=== PATIENT | male | born 1970 | race Caucasian/White ===

== ENCOUNTER → 2018-04-09 | Emergency (ER) | payer OTHER ==
[~2018-04-09] MED LIST: CEFTRIAXONE 1,000 MG in DEXTROSE 5%-WATER - 50 ML IVPB ONE; VANCOMYCIN 1 GRAM (PRE-DOCKED) 1,000 MG/250 ML BAG IVPB ONE; VANCOMYCIN 1,000 MG VIAL (RESTRICTED TO ID ONLY) ONE; cefTRIAXone SODIUM 1 GM VIAL ONE
--- NOTE | 2018-04-09 23:45 | PDOC ---
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 Pt states that he went to work out today after a long period of inactivity and he now has neck pain and headache. Incidentally he states that hsi throat is sore and that he is having difficulty breathing. He has no PMHx of medical problems. He is afebrile. He has no ill contacts. He appears well, no voice changes and no difficulty swallowing, or handling his secretions. Timing/Duration: 4-6 hours Severity: mild, moderate Modifying Factors: worse with: cold therapy, eating, immobilization, medication , movement, rest, other Associated Symptoms: reports: cough. denies: denies symptoms, chest pain, diaphoresis, fever/chills, headaches, loss of appetite, malaise, nausea/vomiting , rash, seizure, shortness of breath, syncope, weakness, other Aspirin Received prior to arrival: No: no aspirin today, unknown, 81 mg x 1, 81 mg x 2, 81 mg x 3, 81 mg x 4, 325 mg x 1, provided at home, provided by EMS, provided by [facility] Contraindications(Core Measure): No: Allergy, Other, Active Blding w/i 24 hrs., Plavix, Receiving Warfarin Past History - Travel Traveled outside of the country in the last 30 days: No Close contact w/someone who was outside of country & ill: No - Past Medical History Allergies/Adverse Reactions: Allergies Allergy/AdvReac Type Severity Reaction Status Date / Time guaifenesin [From Quibron] Allergy Verified 04/09/18 23:45 theophylline [From Quibron] Allergy Verified 04/09/18 23:45 Home Medications: Ambulatory Orders Nortriptyline HCl 04/09/18 COPD: No - Suicide/Smoking/Psychosocial Hx Smoking History: Never smoked Have you smoked in the past 12 months: No Review of Systems - Review of Systems Able to Perform ROS?: Yes Is the patient limited Chinese proficient: No Constitutional: No: Symptoms Reported, See HPI, Chills, Diaphoresis, Fever, Loss of Appetite, Malaise, Night Sweats, Weakness, Weight Stable, Unintentional Wgt. Loss, Unexplained wgt Loss, Other HEENTM: No: Symptoms Reported, See HPI, Eye Pain, Blurred Vision, Tearing, Recent change in vision, Double Vision, Cataracts, Ear Pain, Ocular Prothesis, Ear Discharge, Nose Pain, Nose Congestion, Tinnitus, Nose Bleeding, Hearing Loss , Throat Pain, Throat Swelling, Mouth Pain, Dental Problems, Difficulty Swallowing, Mouth Swelling, Other Respiratory: No: Symptoms reported, See HPI, Cough, Orthopnea, Shortness of Breath, SOB with Exertion, SOB at Rest, Stridor, Wheezing, Productive cough, Hemoptysis, Other Cardiac (ROS): No: Symptoms Reported, See HPI, Chest Pain, Edema, Irregular Heart Rate, Lightheadedness, Palpitations, Syncope, Chest Tightness, Other ABD/GI: No: Symptoms Reported, See HPI, Abdominal Distended, Abd. Pain w/ defecation, Blood Streaked Bowels, Constipated, Diarrhea, Difficulty Swallowing , Nausea, Poor Appetite, Poor Fluid Intake, Rectal Bleeding, Vomiting, Indigestion, Abdominal cramping, Tarry Stools, Other Musculoskeletal: Yes: Muscle Pain, Neck Pain. No: Symptoms Reported, See HPI, Back Pain, Gout, Joint Pain, Joint Swelling, Muscle Weakness, Joint Stiffness, Other Integumentary: No: Symptoms Reported, See HPI, Bruising, Change in Color, Change in Hair/Nails, Dryness, Erythema, Flushing, Lesions, Lumps, Pallor, Pruritus, Rash, Sweating, Other Neurological: No: Symptoms reported, See HPI, Headache, Numbness, Paresthesia, Pre-Existing Deficit, Seizure, Tingling, Tremors, Weakness, Unsteady Gait, Ataxia, Dizziness, Other *Physical Exam - Physical Exam General Appearance: Yes: Nourished, Appropriately Dressed HEENT: positive: EOMI, JAYDEN, Normal ENT Inspection, Normal Voice Neck: positive: Trachea midline, Supple Respiratory/Chest: positive: Lungs Clear, Normal Breath Sounds, Other Cardiovascular: positive: Regular Rate, S1, S2 Gastrointestinal/Abdominal: positive: Normal Bowel Sounds, Soft Musculoskeletal: positive: Normal Inspection. negative: CVA Tenderness Extremity: positive: Normal Capillary Refill, Normal Inspection, Normal Range of Motion Integumentary: positive: Normal Color, Dry Neurologic: positive: pants presser II-XII NML intact, Fully Oriented, Alert, Normal Mood/ Affect, Normal Response, Motor Strength 12/15 ED Treatment Course - LABORATORY CBC & Chemistry Diagram: 04/10/18 01:25 04/10/18 01:25 Medical Decision Making - Medical Decision Making 04/10/18 00:52 Patient Name: EDEN LONDON THIS IS A PRELIMINARY REPORT FROM [facility] DATE OF SERVICE: 2018-04-10 00:12:52 IMAGES: 77 EXAM: CT HEAD WITHOUT CONTRAST No acute brain parenchymal abnormality. No hemorrhage, mass or acute territorial infarct. Chronic fracture left lamina papyracea. Minimal mucoperiosteal thickening paranasal sinuses. Visualized mastoid air cells clear. Individualized dose optimization techniques were used for this CT. 04/10/18 01:20 Patient Name: EDEN LONDON THIS IS A PRELIMINARY REPORT FROM [facility] DATE OF SERVICE: 2018-04-10 00:06:21 IMAGES: 231 EXAM: CT NECK WITHOUT CONTRAST Thickened epiglottis, suspicious for adult supraglottitis. Slightly effaced left pyriform sinus, question left vocal fold thickening. Consider followup laryngoscopy. No abscess or focal fluid collection. Slightly prominent lingual tonsils. Unremarkable thyroid gland and parotid and submandibular glands. Mucoperiosteal thickening paranasal sinuses. Chronic fracture left lamina papyracea 04/10/18 01:56 I spoke to our ENT Cousins, who suggests transfer to [facility]. Pt also requesting [facility], as his neurologists and other docs are there. 04/10/18 02:[address] Delgado, ENT who accepts the case to the ER. 04/10/18 03:53 Pt incidentally found to have a supraglottitis on CT neck. Head CT normal. BURKS improved with percocet. Pt treated with 1g rocephin and 1g vanco and he will be transferred to [facility] for ENT followup. *DC/Admit/Observation/Transfer Diagnosis at time of Disposition: Supraglottitis without airway obstruction, AVM (arteriovenous malformation) brain - Discharge Dispostion Disposition: TRANSFER ACUTE CARE/OTHER HOSP Condition at time of disposition: Guarded - Referrals - Patient Instructions - Post Discharge Activity - Transfer to Acute Care Facility Receiving Facility: [facility]. Accepting Physician:: Dr. Delgado (ENT)
[2018-04-09 23:52] VITALS: TEMP 99.5; BMI 25.8
[2018-04-10 02:11] VITALS: BP 123/80; PULSE 93
[2018-04-10 02:11] LABS: HEMOGLOBIN 14.8 GM/dl (11.7-16.9); MCHC 34.4 g/dl (32.0-35.9); MEAN CELL VOLUME 93.2 fl (80-96); MEAN PLT VOLUME 8.8 fl (7.5-11.1); PLATELET COUNT 207 K/MM3 (134-434); RBC 4.62 M/mm3 (4.00-5.60); RDW 12.8 % (11.9-15.9); WHITE BLOOD COUNT 13.2 K/mm3 (4.0-10.8)
[2018-04-10 02:12] LABS: BASO % 0.1 % (0-2.0); EOS % 1.1 % (0-4.5); MONO % 4.9 % (3.8-10.2); NEUT % 84.9 % (42.8-82.8)
[2018-04-10 02:42] LABS: INR 0.93 (0.83-1.09); PROTHROMBIN TIME (PATIENT) 10.5 SEC (9.7-13.0)
[2018-04-10 02:44] LABS: ACTIVATED PTT 28.4 SECONDS (25.2-36.5)
[2018-04-10 03:08] LABS: ALK PHOS 62 U/L (45-117); ANION GAP 6 MMOL/L (8-16); BILIRUBIN,TOTAL 0.7 mg/dL (0.2-1.0); BLOOD UREA NITROGEN 15 mg/dL (7-18); CALCIUM 8.8 mg/dL (8.5-10.1); CHLORIDE 105 mmol/L (98-107); CO2 28 mmol/L (21-32); GLUCOSE,RANDOM 103 mg/dL (74-106); POTASSIUM 3.7 mmol/L (3.5-5.1); SGOT/AST 32 U/L (15-37); SGPT/ALT 45 U/L (12-78); SODIUM 139 mmol/L (136-145); TOT PROT 7.1 g/dl (6.4-8.2)
--- NOTE | 2018-04-10 10:43 | EKG ---
Test Reason : Blood Pressure : / mmHG Vent. Rate : 097 BPM Atrial Rate : 097 BPM P-R Int : 168 ms QRS Dur : 076 ms QT Int : 348 ms P-R-T Axes : 073 005 -04 degrees QTc Int : 441 ms NORMAL SINUS RHYTHM NONSPECIFIC ST AND T WAVE ABNORMALITY ABNORMAL ECG WHEN COMPARED WITH ECG OF 10-OCT-2017 15:46, NON-SPECIFIC CHANGE IN ST SEGMENT IN INFERIOR LEADS NONSPECIFIC T WAVE ABNORMALITY NOW EVIDENT IN INFERIOR LEADS NONSPECIFIC T WAVE ABNORMALITY NOW EVIDENT IN LATERAL LEADS Confirmed by ROSE EPPS, ALINE ([id number]) on 04/10/2018 10:43:03 AM Referred By: MD ARELLANO Confirmed By:ALINE ROSE MD
== END | disposition short-term general hospital (02) ==
LOC: FER 23:41 → MERGE 23:41
DX: J04.30 Supraglottitis, unspecified, without obstruction (principal); Q28.2 Arteriovenous malformation of cerebral vessels
CPT/HCPCS: 36415; 70450-TC; 70490-TC; 80053; 85025; 85610; 85730; 87040; 87070; 87430; 93005; 96365; 96375; 99281-25